=== PATIENT | female | born 1935 | race Caucasian/White ===

== ENCOUNTER 2017-02-19 14:15 | Inpatient (IN) | payer MEDICARE, MEDICAID ==
[~2017-02-19] VITALS: Ht 165.1 cm; Wt 58.1 kg
--- NOTE | 2017-02-19 14:20 | NUR ---
Code stroke activated per Dr.Sauer holman.
[2017-02-19 14:51] LABS: BASOPHILS % (AUTO) 0.4 % (0.0-2.0); EOSINOPHILS # (AUTO) 0.1 K/uL (0.0-0.7); EOSINOPHILS % (AUTO) 1.4 % (0.0-7.0); HEMATOCRIT 43.4 % (31.2-41.9); LYMPHOCYTES # (AUTO) 3.3 K/uL (20.0-40.0); LYMPHOCYTES % (AUTO) 36.9 % (20.5-51.5); MEAN CORPUSCULAR HEMOGLOBIN 31.4 uug (24.7-32.8); MEAN CORPUSCULAR HGB CONC 35 g/dL (32.3-35.6); MEAN CORPUSCULAR VOLUME 90.9 fL (75.5-95.3); MONOCYTES % (AUTO) 10.8 % (0.0-11.0); NEUTROPHILS # (AUTO) 4.6 K/uL (1.8-8.9); NEUTROPHILS % (AUTO) 50.5 % (38.5-71.5); PLATELET COUNT (AUTO) 180 K/uL (179-408); RED BLOOD CELL COUNT(AUTO) 4.78 MIL/uL (3.63-4.92)
[2017-02-19 14:55] LABS: CARBON DIOXIDE 30 mmol/L (21-32); CHLORIDE 103 mmol/L (98-107); CREATININE 1.3 mg/dL (0.6-1.3); GLUCOSE 84 mg/dL (74-106); POTASSIUM 3.1 mmol/L (3.5-5.1); UREA NITROGEN, BLOOD 25 mg/dL (7-18)
[2017-02-19 15:01] LABS: ALANINE AMINOTRANSFERASE 31 U/L (14-59); ALKALINE PHOSPHATASE 65 U/L (50-136); ASPARTATE AMINOTRANSFERASE 28 U/L (15-37); BILIRUBIN,DIRECT 0.1 mg/dL (0.0-0.2); BILIRUBIN,TOTAL 0.5 mg/dL (0.2-1.0); TOTAL PROTEIN, SERUM 7.9 g/dL (6.4-8.2)
--- NOTE | 2017-02-19 15:11 | NUR ---
TELENEUROLOGIST SESSION WITH PT AND FAMILY CONDUCTED. EXPLANATION OF POSSIBLE USE OF TPA EXPLAINED TO PT AND FAMILY, BUT BEACUSE PT S CURRENTLY ON ELIQUIS, TELENEUROLOGIST INFORMED FAMILY THAT TPA IS CONTRAINDICATED AT THIS TIME. FAMILY RECEPTIVE TO EXPLANATIONS. PT REMAINS VERBALLY RESPONSIVE, BUT STILL UNABLE TO RECOGNIZE DAUGHTER. PT MOVING BOTH UPPER AND LOWER EXTREMITIES ON COMMAND. SESSION TERMINATED WITH TELENEUROLOGIST TO CALL DR JULIAN FOR FURTHER INTERVENTION.
--- NOTE | 2017-02-19 15:36 | NUR ---
upon arrival with pt's daughter translating, pt did not answer questions or follow commands. Upon arrival from xray and after neurologist jimenez, pt was then able to answer questions and i did not notice and deficiets. pt no a/o x 4 and answering all questions and back to normal per daughter.
[2017-02-19] MEDS ORDERED: NORMAL SALINE FLUSH 10 ML DISP.SYRIN ONE (15:37)
[2017-02-19] MEDS ORDERED: IV NORMAL SALINE 250 ML IV ONE (15:37)
[2017-02-19] MEDS ORDERED: IOHEXOL 350 100 ML INFUS..BTL ONE ×2 (15:37→16:16)
--- NOTE | 2017-02-19 15:40 | NUR ---
Pt's daughter signed consent for CTA Brain after speking with .
--- NOTE | 2017-02-19 15:50 | NUR ---
Pt to CT via bhavesh with myself and cytotechnologist/cytology supervisor Zeke with ACLS guidelines in place.
--- NOTE | 2017-02-19 16:20 | NUR ---
Pt had emesis x 2 in radiology dept post CTA and c/o headache. Pt brought back to ER and notified. BP 190/77, HR 62, RR 20, PULSE OX 99% (4L N/C).
[2017-02-19] MEDS ORDERED: ONDANSETRON 4 MG/2 ML VIAL IV ONE (16:30)
[2017-02-19] MEDS ORDERED: CYAN10006 IM (16:44)
[2017-02-19] MEDS ORDERED: DEXL60CA3 PO (16:44)
[2017-02-19] MEDS ORDERED: APIX2.5T PO (16:44)
[2017-02-19] MEDS ORDERED: ATOR20TA PO (16:44)
[2017-02-19] MEDS ORDERED: GLIM2TAB PO (16:44)
[2017-02-19] MEDS ORDERED: VALS160T2 PO (16:44)
[2017-02-19] MEDS ORDERED: VALS1TAB2 PO (16:44)
[2017-02-19] MEDS ORDERED: DOCU100C36 PO (16:44)
[2017-02-19] MEDS ORDERED: POLY17PO4 PO (16:44)
[2017-02-19] MEDS ORDERED: CREON PO (16:44)
[2017-02-19] MEDS ORDERED: DICY20TA11 PO (16:44)
[2017-02-19] MEDS ORDERED: PARO20TA51 PO (16:44)
[2017-02-19] MEDS ORDERED: CITA10TA17 PO (16:44)
[2017-02-19] MEDS ORDERED: NEBI5TAB8 PO (16:44)
[2017-02-19] MEDS ORDERED: SPIR25TA PO (16:44)
[2017-02-19] MEDS ORDERED: LIDO30AD10 TD (16:44)
[2017-02-19] MEDS ORDERED: ONDANSETRON 4 MG/2 ML VIAL ONE (17:04)
[2017-02-19] MEDS ORDERED: ACETAMINOPHEN ES 500 MG TABLET PO ONE (17:45)
[2017-02-19] MEDS ORDERED: LABETALOL HCL 100 MG/20 ML VIAL IV ONE (17:45)
--- NOTE | 2017-02-19 18:03 | NUR ---
PT RESTING, DAUGHTER AT THE BEDSIDE, BELONGINGS LIST/ADMIT ORDER DONE. CALLED TO GIVE REPORT TO 2ND FLOOR AND NURSE TO CALL BACK. MONITOR SHOWS PACED RHYTHM.
[2017-02-19] MEDS ORDERED: LABETALOL HCL 100 MG/20 ML VIAL ONE (18:07)
[2017-02-19] MEDS ORDERED: ACETAMINOPHEN ES 500 MG TABLET ONE (18:07)
--- NOTE | 2017-02-19 18:11 | NUR ---
SBAR REPORT TO KILO EVANGELISTA . PT TO RM 215 VIA [employer].
--- NOTE | 2017-02-19 18:20 | NUR ---
NEW PATIENT TO ROOM 215 AWAKE ALERT COOPERATE WELL SPEAK ICELANDIC ON FALL PRECAUTION BED ALARM ON AND CALL SPENCER IN REACH FAMILY AT BEDSIDE
[2017-02-19 20:00] VITALS: BP 112/52
[2017-02-19] MEDS ORDERED: ACETAMINOPHEN 325 MG TABLET PO PRN (21:00)
[2017-02-19] MEDS ORDERED: MIRALAX 17 GM POWD.PACK PO PRN (21:00)
[2017-02-19] MEDS ORDERED: ONDANSETRON 4 MG/2 ML VIAL IV PRN (21:00)
[2017-02-19] MEDS: AMLODIPINE 5 MG TABLET PO SCH (21:00)
[2017-02-19] MEDS ORDERED: MORPHINE SULFATE 2 MG/1 ML DISP.SYRIN IV PRN (21:00)
[2017-02-19] MEDS ORDERED: DICYCLOMINE HCL 20 MG TABLET PO PRN (21:00)
[2017-02-19] MEDS: ATORVASTATIN 20 MG TABLET PO SCH (21:51)
[2017-02-19] MEDS ORDERED: DOCUSATE SODIUM 100 MG CAPSULE PO ONE (21:58)
[2017-02-19] MEDS: DOCUSATE SODIUM 250 MG CAPSULE PO SCH (22:00)
[2017-02-19] MEDS ORDERED: POTASSIUM CHLORIDE 20 MEQ TAB.PRT.SR PO ONE (22:15)
[2017-02-19] MEDS ORDERED: POTASSIUM CHLORIDE 20 MEQ TAB.PRT.SR ONE (22:28)
[2017-02-20 00:10] VITALS: BP 112/58
[2017-02-20 04:00] VITALS: BP 159/54
--- NOTE | 2017-02-20 06:02 | NUR ---
Pt has been alert, oriented x 4, calm and cooperative throughout my shift. RAHEEL, Utilized walker this morning to ambulate to restroom, tolerated well,, no shortness of breath, no dizziness. Pupils equal, round reactive to light. No drift noted in extremities, tongue midline, smile edges equal. Pt complained of slight headache this morning, but states "it's much better now". Noted 0400 NIBP in right arm is 159, discussed with pt - she has her regular anti-hypertensive medications due this morning at 0900. Continuing to monitor pt for physiologic changes and safety.
[2017-02-20] MEDS ORDERED: ACETAMINOPHEN 325 MG TABLET ONE (06:09)
[2017-02-20 07:02] LABS: BASOPHILS % (AUTO) 0.7 % (0.0-2.0); EOSINOPHILS # (AUTO) 0.1 K/uL (0.0-0.7); EOSINOPHILS % (AUTO) 1.4 % (0.0-7.0); HEMATOCRIT 40.5 % (31.2-41.9); HEMOGLOBIN 13.8 g/dL (10.9-14.3); LYMPHOCYTES # (AUTO) 2.2 K/uL (20.0-40.0); LYMPHOCYTES % (AUTO) 31.1 % (20.5-51.5); MEAN CORPUSCULAR HEMOGLOBIN 31.1 uug (24.7-32.8); MEAN CORPUSCULAR HGB CONC 34 g/dL (32.3-35.6); MEAN CORPUSCULAR VOLUME 91.5 fL (75.5-95.3); MONOCYTES # (AUTO) 0.7 K/uL (2.0-10.0); MONOCYTES % (AUTO) 9.4 % (0.0-11.0); NEUTROPHILS # (AUTO) 4.1 K/uL (1.8-8.9); NEUTROPHILS % (AUTO) 57.4 % (38.5-71.5); PLATELET COUNT (AUTO) 171 K/uL (179-408); RED BLOOD CELL COUNT(AUTO) 4.43 MIL/uL (3.63-4.92); WHITE BLOOD COUNT (AUTO) 7.1 K/uL (3.8-11.8)
[2017-02-20] MEDS: PANTOPRAZOLE SODIUM 40 MG TABLET.DR PO SCH (07:14)
[2017-02-20 07:27] LABS: CARBON DIOXIDE 30 mmol/L (21-32); CHLORIDE 105 mmol/L (98-107); CREATININE 1.1 mg/dL (0.6-1.3); GLUCOSE 91 mg/dL (74-106); UREA NITROGEN, BLOOD 25 mg/dL (7-18)
[2017-02-20 07:28] LABS: ALANINE AMINOTRANSFERASE 26 U/L (14-59); ALKALINE PHOSPHATASE 53 U/L (50-136); ASPARTATE AMINOTRANSFERASE 28 U/L (15-37); BILIRUBIN,TOTAL 0.8 mg/dL (0.2-1.0); CHOLESTEROL 169 mg/dL (<200); HDL CHOLESTEROL 37 mg/dL (40-60); PHOSPHOROUS 4.4 mg/dL (2.5-4.9); TOTAL PROTEIN, SERUM 7.1 g/dL (6.4-8.2); TRIGLYCERIDES 228 MG/DL (30-150)
--- NOTE | 2017-02-20 07:30 | NUR ---
ORDERED po POTASSIUM GIVEN @2200 AND CHARTED IN Em[facility]
[2017-02-20 07:33] LABS: THYROID STIMULATING HORMONE 2.018 mIU/mL (0.358-3.740)
[2017-02-20] MEDS ORDERED: CREON PO SCH (08:00)
[2017-02-20] MEDS: DOCUSATE SODIUM 100 MG CAPSULE PO SCH ×2 (08:50→17:05)
[2017-02-20] MEDS: GLIMEPIRIDE 2 MG TABLET PO SCH (08:50)
[2017-02-20] MEDS: CITALOPRAM 10 MG TABLET PO SCH (08:50)
[2017-02-20] MEDS: VALSARTAN 160 MG TABLET PO SCH (08:51)
[2017-02-20] MEDS: AMLODIPINE 5 MG TABLET PO SCH ×2 (08:52→20:41)
[2017-02-20] MEDS ORDERED: LIDOCAINE 5% PATCH TD SCH (09:00)
[2017-02-20] MEDS ORDERED: HYDROCODONE/APAP 5-325MG TABLET PO PRN (09:15)
[2017-02-20] MEDS ORDERED: APIXABAN 5 MG TABLET PO ONE (11:00)
[2017-02-20 11:53] VITALS: BP 138/52
--- NOTE | 2017-02-20 14:11 | NUR ---
mri brain not done patient has pacemaker
[2017-02-20 15:31] VITALS: BP 140/49
--- NOTE | 2017-02-20 17:19 | NUR ---
DR KOHLER MADE AWARE OF MRI NOT BEING DONE, PT HAS PACEMAKER. NO NEW ORDER
[2017-02-20] MEDS: ELIQUIS 2.5 MG PO SCH (18:55)
[2017-02-20 19:00] VITALS: BP 156/84
--- NOTE | 2017-02-20 19:30 | NUR ---
PT IN ROOM ALERT AWAKE IN NO ACUTE DISTRESS. STATES SHE WILL BE TALKING TO THE MD ABOUT HER "MRI" STATUS. IV SITE INTACT TO RIGHT AC. NO INCREASED WEAKNESS NOTED TO UPPER AND LOWER EXTREMITIES. SPEECH IS CLEAR. CONTINUE TO MONITOR. CALL LIGHT PLACED WITHIN REACH.
[2017-02-20] MEDS: DOCUSATE SODIUM 250 MG CAPSULE PO SCH (20:35)
[2017-02-20] MEDS: ATORVASTATIN 20 MG TABLET PO SCH (20:41)
--- NOTE | 2017-02-21 01:00 | NUR ---
PT IN ROOM ASLEEP IN NO ACUTE DISTRESS. NO PAIN OR DISCOMFORT NOTED AT THIS TIME. CONTINUE TO MONITOR.
[2017-02-21 06:38] LABS: BASOPHILS % (AUTO) 0.6 % (0.0-2.0); EOSINOPHILS # (AUTO) 0.1 K/uL (0.0-0.7); EOSINOPHILS % (AUTO) 1.8 % (0.0-7.0); HEMATOCRIT 42.1 % (31.2-41.9); HEMOGLOBIN 14.3 g/dL (10.9-14.3); MEAN CORPUSCULAR HEMOGLOBIN 31.2 uug (24.7-32.8); MEAN CORPUSCULAR HGB CONC 34 g/dL (32.3-35.6); MEAN CORPUSCULAR VOLUME 91.6 fL (75.5-95.3); MONOCYTES # (AUTO) 0.7 K/uL (2.0-10.0); MONOCYTES % (AUTO) 10.3 % (0.0-11.0); NEUTROPHILS # (AUTO) 4.1 K/uL (1.8-8.9); NEUTROPHILS % (AUTO) 58.3 % (38.5-71.5); PLATELET COUNT (AUTO) 163 K/uL (179-408); RED BLOOD CELL COUNT(AUTO) 4.59 MIL/uL (3.63-4.92)
[2017-02-21] MEDS: PANTOPRAZOLE SODIUM 40 MG TABLET.DR PO SCH (07:03)
[2017-02-21 07:04] LABS: CARBON DIOXIDE 30 mmol/L (21-32); CHLORIDE 105 mmol/L (98-107); GLUCOSE 90 mg/dL (74-106); PHOSPHOROUS 3.7 mg/dL (2.5-4.9); UREA NITROGEN, BLOOD 18 mg/dL (7-18)
--- NOTE | 2017-02-21 08:00 | NUR ---
Patient came to hospital with altered mental status. Currently in her room watching TV at this time. Patient is awake and alert and oriented x3. Exhibits no symptoms of confusion. Vitals signs stable at this time.
[2017-02-21] MEDS: GLIMEPIRIDE 2 MG TABLET PO SCH (08:15)
[2017-02-21] MEDS: CITALOPRAM 10 MG TABLET PO SCH (08:18)
[2017-02-21] MEDS: DOCUSATE SODIUM 100 MG CAPSULE PO SCH (08:18)
[2017-02-21] MEDS: AMLODIPINE 5 MG TABLET PO SCH (08:19)
[2017-02-21] MEDS: VALSARTAN 160 MG TABLET PO SCH (08:20)
[2017-02-21] MEDS: ELIQUIS 2.5 MG PO SCH (08:23)
[2017-02-21] MEDS ORDERED: SPIRONOLACTONE 25 MG TABLET PO SCH (09:00)
[2017-02-21 11:25] VITALS: BP 157/70
--- NOTE | 2017-02-21 12:00 | NUR ---
Dr Balderas saw patient today with DC orders. Noted and carried out.
[2017-02-21] MEDS ORDERED: APIX5TAB PO (14:12)
[2017-02-21 15:38] VITALS: BP 144/65
--- NOTE | 2017-02-21 16:08 | NUR ---
Patient was picked up by family. Pharmacist came to give instruction regarding patient's medications. Patient's iv hep-lock was removed. Gave patient discharge paperwork, personal belongings, home medications and patient education and to follow-up with pmd in a week. Patient verbalized understanding. Vital signs stable
== END 2017-02-21 15:45 | disposition home or self-care (01) | DRG 69 ==
LOC: ER 14:15 → TELE 18:00 → MED 02-20 17:42
PROVIDERS: ADMIT Internal Medicine; ATTEND Internal Medicine
DX: G45.9 Transient cerebral ischemic attack, unspecified (principal); N17.0 Acute kidney failure with tubular necrosis; I48.91 Unspecified atrial fibrillation; E11.9 Type 2 diabetes mellitus without complications; I65.23 Occlusion and stenosis of bilateral carotid arteries; E78.5 Hyperlipidemia, unspecified; Z86.73 Personal history of transient ischemic attack (TIA), and cerebral infarction without residual deficits; Z79.01 Long term (current) use of anticoagulants; Z79.899 Other long term (current) drug therapy; I10 Essential (primary) hypertension; E87.6 Hypokalemia; Z95.0 Presence of cardiac pacemaker; Z87.891 Personal history of nicotine dependence; Z85.828 Personal history of other malignant neoplasm of skin; Z79.84 Long term (current) use of oral hypoglycemic drugs; G89.29 Other chronic pain; M54.9 Dorsalgia, unspecified
CPT/HCPCS: 36415; 70030-TC; 70450; 70496; 71010; 83735; 84100; 84443; 85025; 85730; 93005; 97116; 97530; A4663; J2405; J3490; J7050; Q9967

== ENCOUNTER 2017-06-27 11:21 | Emergency (ER) | payer MEDICARE, MEDICAID ==
[~2017-06-27] VITALS: Ht 160 cm; Wt 61.2 kg
[~2017-06-27 11:21] MED LIST: APIX5TAB PO; ATOR20TA PO; CITA10TA17 PO; CREON PO; CYAN10006 IM; DEXL60CA3 PO; DICY20TA11 PO; DOCU100C36 PO; GLIM2TAB PO; NEBI5TAB8 PO; PARO20TA51 PO; POLY17PO4 PO; SPIR25TA PO; VALS160T2 PO
[2017-06-27 11:49] LABS: BASOPHILS % (AUTO) 0.3 % (0.0-2.0); EOSINOPHILS # (AUTO) 0.1 K/uL (0.0-0.7); HEMATOCRIT 41.2 % (31.2-41.9); HEMOGLOBIN 14.1 g/dL (10.9-14.3); LYMPHOCYTES # (AUTO) 1.4 K/uL (20.0-40.0); LYMPHOCYTES % (AUTO) 12.6 % (20.5-51.5); MEAN CORPUSCULAR HEMOGLOBIN 31.7 uug (24.7-32.8); MEAN CORPUSCULAR HGB CONC 34 g/dL (32.3-35.6); MEAN CORPUSCULAR VOLUME 92.6 fL (75.5-95.3); MONOCYTES # (AUTO) 0.8 K/uL (2.0-10.0); MONOCYTES % (AUTO) 6.9 % (0.0-11.0); NEUTROPHILS # (AUTO) 8.9 K/uL (1.8-8.9); NEUTROPHILS % (AUTO) 79.2 % (38.5-71.5); PLATELET COUNT (AUTO) 158 K/uL (179-408); RED BLOOD CELL COUNT(AUTO) 4.45 MIL/uL (3.63-4.92); WHITE BLOOD COUNT (AUTO) 11.2 K/uL (3.8-11.8)
[2017-06-27 11:52] LABS: CARBON DIOXIDE 27 mmol/L (21-32); CHLORIDE 106 mmol/L (98-107); CREATININE 1.2 mg/dL (0.6-1.3); GLUCOSE 128 mg/dL (74-106); UREA NITROGEN, BLOOD 23 mg/dL (7-18)
[2017-06-27 11:58] LABS: ALANINE AMINOTRANSFERASE 40 U/L (14-59); ALKALINE PHOSPHATASE 76 U/L (50-136); ASPARTATE AMINOTRANSFERASE 28 U/L (15-37); BILIRUBIN,DIRECT 0.2 mg/dL (0.0-0.2); BILIRUBIN,TOTAL 0.7 mg/dL (0.2-1.0); LIPASE 461 U/L (73-393); TOTAL PROTEIN, SERUM 7.8 g/dL (6.4-8.2)
--- NOTE | 2017-06-27 12:24 | NUR ---
assymptomatic now. no pain no nausea at rest
[2017-06-27 12:49] VITALS: BP 152/67
== END 2017-06-27 13:02 | disposition home or self-care (01) ==
LOC: ER 11:21
DX: I10 Essential (primary) hypertension (principal); R74.8 Abnormal levels of other serum enzymes; E78.5 Hyperlipidemia, unspecified; Z88.1 Allergy status to other antibiotic agents; Z79.2 Long term (current) use of antibiotics; Z79.899 Other long term (current) drug therapy; Z95.0 Presence of cardiac pacemaker; Z86.73 Personal history of transient ischemic attack (TIA), and cerebral infarction without residual deficits; E11.9 Type 2 diabetes mellitus without complications
CPT/HCPCS: 36415; 80048; 80076; 83690; 84484; 85025; 93005; 99285; A4663; 70030-TC

== ENCOUNTER 2020-10-31 18:44 | Inpatient (IN) | payer MEDICARE, OTHER ==
[~2020-10-31] VITALS: Ht 165.1 cm; Wt 63.5 kg
[2020-10-31 18:26] VITALS: BP 152/85
[~2020-10-31 18:44] MED LIST changes: +PARO-142 PO; -PARO20TA51 PO
--- NOTE | 2020-10-31 19:25 | NUR ---
Received admission report from outgoing nurse. Patient in bed, awake, alert and oriented x 2-3, able to make needs known. Oriented to room, call light use, frequent rounding. Denies any pain/discomforts at this time. Routine admission care done. Plan of care initiated.
[2020-10-31] MEDS ORDERED: Z GUARD REMEDY PASTE 57 GM TUBE TOP PRN (20:15)
[2020-10-31] MEDS ORDERED: HYDR-3974 PO (20:34)
[2020-10-31] MEDS ORDERED: CARV25TA2 PO (20:34)
[2020-10-31] MEDS ORDERED: DOCU100C36 PO (20:34)
[2020-10-31] MEDS ORDERED: ASPI-612 PO (20:34)
[2020-10-31] MEDS ORDERED: SACU1TAB7 PO (20:34)
[2020-10-31] MEDS ORDERED: SITA50TA PO (20:34)
[2020-10-31] MEDS ORDERED: MIRA25TA PO (20:34)
[2020-10-31] MEDS ORDERED: ESCI10TA PO (20:34)
[2020-10-31] MEDS ORDERED: AMLO2.5T4 PO (20:34)
[2020-10-31] MEDS ORDERED: CLIN300C12 PO (20:34)
[2020-10-31] MEDS ORDERED: LEVO75TA7 PO (20:34)
[2020-10-31] MEDS ORDERED: ROSU10TA2 PO (20:34)
[2020-10-31] MEDS ORDERED: PANT40TA49 PO (20:34)
[2020-10-31] MEDS ORDERED: METR-147 PO (20:34)
[2020-10-31 20:42] VITALS: BP 112/65
[2020-10-31] MEDS ORDERED: DEXTROSE 50% 50 ML DISP.SYRIN IV PRN (20:45)
[2020-10-31 20:55] VITALS: BP 164/96
[2020-10-31] MEDS: BLOOD SUGAR DIAGNOSTIC 1 EACH STRIP VI SCH (21:31)
[2020-10-31] MEDS ORDERED: ACETAMINOPHEN 325 MG TABLET PO PRN (22:30)
[2020-10-31] MEDS ORDERED: MIRALAX 17 GM POWD.PACK PO PRN (22:30)
[2020-11-01 04:42] VITALS: BP 145/81
[2020-11-01] MEDS: BLOOD SUGAR DIAGNOSTIC 1 EACH STRIP VI SCH ×4 (05:51→21:16)
[2020-11-01 06:04] LABS: HEMATOCRIT 33.6 % (31.2-41.9); MEAN CORPUSCULAR HEMOGLOBIN 30.3 uug (24.7-32.8); MEAN CORPUSCULAR VOLUME 89.8 fL (75.5-95.3); PLATELET COUNT (AUTO) 128 K/uL (179-408)
[2020-11-01 07:30] LABS: THYROID STIMULATING HORMONE 0.187 mIU/mL (0.358-3.740)
[2020-11-01 07:41] VITALS: BP 138/72
[2020-11-01 07:51] LABS: BILIRUBIN,TOTAL 0.8 mg/dL (0.2-1.0); CREATININE 0.7 mg/dL (0.6-1.3); MAGNESIUM 1.8 mg/dL (1.8-2.4); PHOSPHOROUS 3.4 mg/dL (2.5-4.9); POTASSIUM 3.5 mmol/L (3.5-5.1); TOTAL PROTEIN, SERUM 6.2 g/dL (6.4-8.2)
[2020-11-01] MEDS: HYDROCODONE/APAP 5-325MG TABLET PO PRN ×2 (10:05→17:13)
--- NOTE | 2020-11-01 11:29 | NUR ---
WOUND CARE CONSULT: PT PRESENTS WITH SURGICAL DRESSING TO LEFT HIP, DRY DRESSING TO LEFT WRIST WITH SPLINT AND SLING, DISCOLORATION TO POSTERIOR NECK AND SACRAL INTACT DEEP TISSUE INJURY, PRESENT ON ADMISSION. RECOMMENDATIONS MADE FOR SKIN PROTECTION AND WOUND CARE. DISCUSSED WITH NURSING STAFF. SALES CATH NOTED. MD IN AGREEMENT WITH PLAN OF CARE.
[2020-11-01] MEDS ORDERED: MIRALAX 17 GM POWD.PACK PO PRN (12:15)
[2020-11-01] MEDS ORDERED: DICYCLOMINE HCL 20 MG TABLET PO PRN (12:15)
[2020-11-01] MEDS ORDERED: HYDROCODONE/APAP 5-325MG TABLET PO PRN (12:15)
[2020-11-01] MEDS ORDERED: ROSU10TA2 PO (14:05)
[2020-11-01] MEDS ORDERED: APIX2.5T PO (14:05)
[2020-11-01] MEDS ORDERED: CAPT25TA3 PO (14:07)
[2020-11-01] MEDS ORDERED: AMIO200T5 PO (14:55)
[2020-11-01 15:34] VITALS: BP 110/72
[2020-11-01] MEDS ORDERED: DOCUSATE SODIUM 100 MG CAPSULE PO PRN (17:00)
[2020-11-01] MEDS ORDERED: DOCUSATE SODIUM 100 MG CAPSULE PO SCH (17:00)
[2020-11-01] MEDS ORDERED: CREON PO SCH (17:00)
[2020-11-01] MEDS: ENTRESTO PO SCH (17:11)
[2020-11-01] MEDS: CARVEDILOL 25 MG TABLET PO SCH (17:12)
[2020-11-01] MEDS: AMLODIPINE 2.5 MG TABLET PO SCH (17:12)
[2020-11-01 20:00] VITALS: BP 108/69
[2020-11-01] MEDS ORDERED: PAROXETINE HCL 20 MG TABLET PO SCH (21:00)
[2020-11-01] MEDS ORDERED: APIXABAN 2.5 MG TABLET PO SCH (21:00)
[2020-11-01] MEDS ORDERED: Medication Not On Formulary EA (Rosuvastatin Calcium (Crestor) 10 MG) PO SCH (21:00)
[2020-11-01] MEDS: DOCUSATE SODIUM 100 MG CAPSULE PO SCH (21:12)
[2020-11-01] MEDS: ATORVASTATIN 20 MG TABLET PO SCH (21:12)
[2020-11-01] MEDS: APIXABAN 2.5 MG TABLET PO SCH (21:13)
[2020-11-01] MEDS: INSULIN REGULAR, HUMAN 300 UNIT/3 ML VIAL SQ PRN (21:18)
[2020-11-02] VITALS: BP 145/75
[2020-11-02 04:00] VITALS: BP 146/77
[2020-11-02] MEDS: PANTOPRAZOLE SODIUM 40 MG TABLET.DR PO SCH (05:44)
[2020-11-02] MEDS: LEVOTHYROXINE SODIUM 75 MCG TABLET PO SCH (05:44)
[2020-11-02] MEDS: BLOOD SUGAR DIAGNOSTIC 1 EACH STRIP VI SCH ×4 (05:49→20:27)
--- NOTE | 2020-11-02 06:59 | NUR ---
Shift End Report: VS stable. slept well. No complaint presented all night. All needs attended and met. No significant event reported. Continue current rehab plan of care.
[2020-11-02 07:43] VITALS: BP 121/80
[2020-11-02] MEDS: CARVEDILOL 25 MG TABLET PO SCH ×2 (08:00→18:02)
[2020-11-02 08:34] VITALS: BP 144/79
[2020-11-02] MEDS ORDERED: Medication Not On Formulary EA (Sitagliptin Phosphate (Januvia) 50 MG) PO SCH (09:00)
[2020-11-02] MEDS ORDERED: VALSARTAN 160 MG TABLET PO SCH (09:00)
[2020-11-02] MEDS: APIXABAN 2.5 MG TABLET PO SCH ×2 (09:00→20:20)
[2020-11-02] MEDS ORDERED: ASPIRIN 325 MG TABLET PO SCH (09:00)
[2020-11-02] MEDS: LISINOPRIL 5 MG TABLET PO SCH (09:00)
[2020-11-02] MEDS ORDERED: CAPTOPRIL 25 MG PO SCH (09:00)
[2020-11-02] MEDS: AMIODARONE HCL 200 MG TABLET PO SCH (09:00)
[2020-11-02] MEDS: ESCITALOPRAM OXALATE 10 MG TABLET PO SCH (09:00)
[2020-11-02] MEDS: MYRBETRIQ 25MG TABLET PO SCH (09:00)
[2020-11-02] MEDS: ENTRESTO PO SCH ×2 (09:00→18:01)
[2020-11-02] MEDS: LINAGLIPTIN 5 MG TABLET PO SCH (09:00)
[2020-11-02] MEDS ORDERED: CITALOPRAM 10 MG TABLET PO SCH (09:00)
[2020-11-02] MEDS ORDERED: Medication Not On Formulary EA (Nebivolol Hcl (Bystolic) 5 MG) PO SCH (09:00)
[2020-11-02] MEDS: AMLODIPINE 2.5 MG TABLET PO SCH (09:00)
[2020-11-02] MEDS ORDERED: GLIMEPIRIDE 2 MG TABLET PO SCH (09:00)
[2020-11-02] MEDS: HYDROCODONE/APAP 5-325MG TABLET PO PRN (09:07)
[2020-11-02] MEDS ORDERED: ONDANSETRON 4 MG/2 ML VIAL IV PRN (13:00)
[2020-11-02] MEDS ORDERED: IV 1/2NS 1000 ML 1,000 ML IV ONE (13:00)
--- NOTE | 2020-11-02 13:42 | NUR ---
INTERDISCIPLINARY TEAM CONFERENCE
[2020-11-02 15:36] VITALS: BP 123/69
--- NOTE | 2020-11-02 19:27 | NUR ---
RECEIVED CALL FROM [facility] SHE IS POSITIVE FOR MRSA BOTH NARES
[2020-11-02 20:00] VITALS: BP 116/68
[2020-11-02] MEDS: ATORVASTATIN 20 MG TABLET PO SCH (20:19)
[2020-11-02] MEDS: DOCUSATE SODIUM 100 MG CAPSULE PO SCH (20:20)
[2020-11-02] MEDS: INSULIN REGULAR, HUMAN 300 UNIT/3 ML VIAL SQ PRN (20:30)
[2020-11-02] MEDS: MUPIROCIN 2% OINT 22 GM TUBE NS SCH (21:23)
--- NOTE | 2020-11-02 23:07 | NUR ---
Received pt on bed, hard of hearing, alert and oriented x4. On O2 at 2 lpm via NC, with no respiratory distress noted. No c/o pain or discomforts at this time. Due medications given and tolerated well. Blood sugar checked with sliding scale covered. All needs attended. Call light placed within reach. Will continue to monitor.
[2020-11-03 04:05] VITALS: BP 124/74
[2020-11-03] MEDS: PANTOPRAZOLE SODIUM 40 MG TABLET.DR PO SCH (06:04)
[2020-11-03] MEDS: LEVOTHYROXINE SODIUM 75 MCG TABLET PO SCH (06:04)
[2020-11-03 06:18] LABS: HEMATOCRIT 31.9 % (31.2-41.9); MEAN CORPUSCULAR HEMOGLOBIN 31.1 uug (24.7-32.8); MEAN CORPUSCULAR VOLUME 89.9 fL (75.5-95.3); PLATELET COUNT (AUTO) 169 K/uL (179-408)
[2020-11-03] MEDS: BLOOD SUGAR DIAGNOSTIC 1 EACH STRIP VI SCH ×4 (06:32→20:36)
[2020-11-03 06:35] LABS: BILIRUBIN,DIRECT 0.3 mg/dL (0.0-0.2); BILIRUBIN,TOTAL 0.8 mg/dL (0.2-1.0); CREATININE 0.8 mg/dL (0.6-1.3); PHOSPHOROUS 2.8 mg/dL (2.5-4.9); POTASSIUM 3.8 mmol/L (3.5-5.1); TOTAL PROTEIN, SERUM 5.7 g/dL (6.4-8.2)
--- NOTE | 2020-11-03 06:41 | NUR ---
Patient slept throughout the night, easily arousable for care. No respiratory distress noted. No c/o pain or discomfort at this time. Due medications given and tolerated well. Blood sugar checked, 139. All needs attended. Call light placed within reach. Frequent visual checks done. Will endorse for continuity of care.
[2020-11-03 07:35] VITALS: BP 111/81
[2020-11-03] MEDS: CARVEDILOL 25 MG TABLET PO SCH ×2 (08:00→17:38)
[2020-11-03] MEDS: LINAGLIPTIN 5 MG TABLET PO SCH (08:29)
[2020-11-03] MEDS: ESCITALOPRAM OXALATE 10 MG TABLET PO SCH (08:29)
[2020-11-03] MEDS: AMIODARONE HCL 200 MG TABLET PO SCH (08:30)
[2020-11-03] MEDS: HYDROCODONE/APAP 5-325MG TABLET PO PRN (08:32)
[2020-11-03] MEDS: APIXABAN 2.5 MG TABLET PO SCH ×2 (08:37→20:28)
[2020-11-03] MEDS ORDERED: ASPIRIN 325 MG TABLET PO SCH (09:00)
[2020-11-03] MEDS ORDERED: SPIRONOLACTONE 25 MG TABLET PO SCH (09:00)
[2020-11-03] MEDS: LISINOPRIL 5 MG TABLET PO SCH (09:00)
[2020-11-03] MEDS: MUPIROCIN 2% OINT 22 GM TUBE NS SCH ×2 (09:36→20:32)
[2020-11-03] MEDS: MYRBETRIQ 25MG TABLET PO SCH (09:36)
[2020-11-03] MEDS: ASPIRIN 81 MG TAB.CHEW PO SCH (09:36)
[2020-11-03] MEDS: ENTRESTO PO SCH ×2 (09:37→17:38)
[2020-11-03] MEDS: INSULIN REGULAR, HUMAN 300 UNIT/3 ML VIAL SQ PRN ×3 (11:27→20:38)
--- NOTE | 2020-11-03 14:06 | NUR ---
INDIVIDUALIZED PLAN OF CARE
[2020-11-03 15:04] VITALS: BP 102/54
[2020-11-03] MEDS: GLUCERNA SHAKE VANILLA 237 ML CAN PO SCH (17:39)
--- NOTE | 2020-11-03 18:00 | NUR ---
Patient remains alert, not in any form of distress, on 2LPM via nasal cannula. Needs attended to promptly. Maintained NWB pracaution on the left upper arm with arm sling on. Kept patient clean and comfortable, turned and repositioned. Will continue to monitor and will endorse accordingly
[2020-11-03 20:12] VITALS: BP 107/65
[2020-11-03] MEDS: DOCUSATE SODIUM 100 MG CAPSULE PO SCH (20:28)
[2020-11-03] MEDS: ATORVASTATIN 20 MG TABLET PO SCH (20:28)
--- NOTE | 2020-11-03 21:50 | NUR ---
Received pt on bed, hard of hearing, alert and oriented x4. On O2 at 2 lpm via NC, with no respiratory distress noted. No c/o pain or discomfort at this time. Due medications given and tolerated well. Blood sugar checked with sliding scale covered. Specialty mattress placed. All needs attended. Call light placed within reach. Will continue to monitor.
[2020-11-04 04:35] VITALS: BP 131/63
[2020-11-04] MEDS: LEVOTHYROXINE SODIUM 75 MCG TABLET PO SCH (06:16)
[2020-11-04] MEDS: PANTOPRAZOLE SODIUM 40 MG TABLET.DR PO SCH (06:16)
--- NOTE | 2020-11-04 06:29 | NUR ---
Patient slept throughout the night, easily arousable for care. No respiratory distress noted. No c/o pain or discomfort at this time. Due medications given and tolerated well. Blood sugar checked, 114. Kept clean, dry, and comfortable. All needs attended. Call light placed within reach. Frequent visual checks done. Will endorse for continuity of care.
[2020-11-04] MEDS: BLOOD SUGAR DIAGNOSTIC 1 EACH STRIP VI SCH ×4 (06:31→20:25)
[2020-11-04] MEDS: HYDROCODONE/APAP 5-325MG TABLET PO PRN (07:56)
[2020-11-04 08:00] VITALS: BP 122/74
[2020-11-04] MEDS: ASPIRIN 81 MG TAB.CHEW PO SCH (08:00)
[2020-11-04] MEDS: LINAGLIPTIN 5 MG TABLET PO SCH (08:00)
[2020-11-04] MEDS: ESCITALOPRAM OXALATE 10 MG TABLET PO SCH (08:01)
[2020-11-04] MEDS: LISINOPRIL 5 MG TABLET PO SCH (08:01)
[2020-11-04] MEDS: CARVEDILOL 25 MG TABLET PO SCH ×2 (08:01→17:07)
[2020-11-04] MEDS: AMIODARONE HCL 200 MG TABLET PO SCH (08:01)
[2020-11-04] MEDS: APIXABAN 2.5 MG TABLET PO SCH ×2 (08:05→20:20)
[2020-11-04] MEDS: GLUCERNA SHAKE VANILLA 237 ML CAN PO SCH ×2 (08:12→16:57)
[2020-11-04] MEDS: MYRBETRIQ 25MG TABLET PO SCH (08:13)
[2020-11-04] MEDS: MUPIROCIN 2% OINT 22 GM TUBE NS SCH ×2 (08:13→20:48)
[2020-11-04] MEDS: ENTRESTO PO SCH ×2 (08:13→16:57)
[2020-11-04] MEDS: INSULIN REGULAR, HUMAN 300 UNIT/3 ML VIAL SQ PRN ×2 (12:03→20:26)
[2020-11-04 16:08] VITALS: BP_SYST 127; BP_SYST 89; BP_DIAS 62
--- NOTE | 2020-11-04 18:43 | NUR ---
no acute distress noted during shift
[2020-11-04 19:51] VITALS: BP 98/66
[2020-11-04] MEDS: DOCUSATE SODIUM 100 MG CAPSULE PO SCH (20:18)
[2020-11-04] MEDS: ATORVASTATIN 20 MG TABLET PO SCH (20:18)
[2020-11-05 04:06] VITALS: BP 113/55
[2020-11-05] MEDS: LEVOTHYROXINE SODIUM 75 MCG TABLET PO SCH (06:15)
[2020-11-05] MEDS: BLOOD SUGAR DIAGNOSTIC 1 EACH STRIP VI SCH ×4 (06:15→20:29)
[2020-11-05] MEDS: PANTOPRAZOLE SODIUM 40 MG TABLET.DR PO SCH (06:15)
--- NOTE | 2020-11-05 06:43 | NUR ---
Shift End Report. Uneventful night. All needs attended and met. No complaint of pain/discomforts presented. Continue current rehab plan of care.
[2020-11-05] MEDS: INSULIN REGULAR, HUMAN 300 UNIT/3 ML VIAL SQ PRN ×3 (07:42→20:34)
[2020-11-05] MEDS: ESCITALOPRAM OXALATE 10 MG TABLET PO SCH (08:04)
[2020-11-05] MEDS: CARVEDILOL 25 MG TABLET PO SCH ×2 (08:04→17:15)
[2020-11-05] MEDS: LISINOPRIL 5 MG TABLET PO SCH (08:04)
[2020-11-05] MEDS: AMIODARONE HCL 200 MG TABLET PO SCH (08:04)
[2020-11-05] MEDS: ASPIRIN 81 MG TAB.CHEW PO SCH (08:04)
[2020-11-05] MEDS: APIXABAN 2.5 MG TABLET PO SCH ×2 (08:06→20:26)
[2020-11-05] MEDS: MUPIROCIN 2% OINT 22 GM TUBE NS SCH ×2 (08:07→20:25)
[2020-11-05] MEDS: GLUCERNA SHAKE VANILLA 237 ML CAN PO SCH ×2 (08:07→17:15)
[2020-11-05] MEDS: MYRBETRIQ 25MG TABLET PO SCH (08:08)
[2020-11-05] MEDS: ENTRESTO PO SCH ×2 (08:08→17:16)
[2020-11-05] MEDS: LINAGLIPTIN 5 MG TABLET PO SCH (08:08)
[2020-11-05 08:58] VITALS: BP 125/73
--- NOTE | 2020-11-05 11:05 | NUR ---
Patient daughter jemima took patient both hearing aids and hearing aid head charger home
[2020-11-05] MEDS ORDERED: VITAMINS A AND D OINT TP PRN (12:00)
[2020-11-05] MEDS ORDERED: HYDROCORTISONE 1% CREAM 30 GM TUBE TP PRN (12:00)
[2020-11-05 15:52] VITALS: BP 128/70
--- NOTE | 2020-11-05 18:08 | NUR ---
patient is alert, oriented, noted sleepy most of the time during day time, no events noted, incision site is clean and dry, no drainage, no redness noted.
[2020-11-05 18:31] LABS: *BILIRUBIN,URIN NEGATIVE (NEGATIVE); *BLOOD, URINE 2+ (NEGATIVE); *CLARITY,URINE SLIGHTLY CLOUDY (CLEAR); *COLOR,URINE DARK YELLOW (YELLOW); *KETONES,URINE NEGATIVE (NEGATIVE); LEUKOCYTE ESTERASE ,URINE 1+ (NEGATIVE); NITRITE, URINE POSITIVE (NEGATIVE); UGLUCOSE NEGATIVE (NEGATIVE)
[2020-11-05 19:06] LABS: BACTERIA,URINE MANY /HPF (NONE SEEN); CALCIUM OXALATE CRYSTALS,UR FEW /HPF (NONE SEEN); SQUAMOUS EPITHELIAL CELL,UR FEW /HPF (NONE SEEN); URINE AMORPHOUS URATE FEW /HPF; WBC,URINE TNTC /HPF (0-3)
--- NOTE | 2020-11-05 19:23 | NUR ---
UA result reported to dr borjas
[2020-11-05 20:19] VITALS: BP 102/60
[2020-11-05] MEDS: ATORVASTATIN 20 MG TABLET PO SCH (20:25)
[2020-11-05] MEDS: DOCUSATE SODIUM 100 MG CAPSULE PO SCH (20:25)
[2020-11-06 04:35] VITALS: BP 132/77
[2020-11-06] MEDS: BLOOD SUGAR DIAGNOSTIC 1 EACH STRIP VI SCH ×4 (05:59→20:46)
[2020-11-06] MEDS: PANTOPRAZOLE SODIUM 40 MG TABLET.DR PO SCH (06:00)
[2020-11-06] MEDS: LEVOTHYROXINE SODIUM 75 MCG TABLET PO SCH (06:00)
--- NOTE | 2020-11-06 06:15 | NUR ---
Shift End Report: No significant event reported. VS stable. NO s/s of hypo/hyperglycemia. No complaint presented. All needs attended and met. Continue current rehab plan of care.
[2020-11-06 07:52] VITALS: BP 157/74
--- NOTE | 2020-11-06 08:30 | NUR ---
Received nano in bed, alert and oriented x 2-3, able to follow simple commands, plesant and cooperative upon assessment. Patient on 2LPM via nasal cannula at 98%. Wean off tyhe oxygen to 1 LPM for 30 mins. Patient is saturating at 95%. After an hour Patient in room air and continuously monitoring her. Patient is saturating at 95% with no s/s of distress.
[2020-11-06] MEDS: ASPIRIN 81 MG TAB.CHEW PO SCH (08:47)
[2020-11-06] MEDS: LISINOPRIL 5 MG TABLET PO SCH (08:48)
[2020-11-06] MEDS: CARVEDILOL 25 MG TABLET PO SCH ×2 (08:48→17:11)
[2020-11-06] MEDS: LINAGLIPTIN 5 MG TABLET PO SCH (08:48)
[2020-11-06] MEDS: ESCITALOPRAM OXALATE 10 MG TABLET PO SCH (08:48)
[2020-11-06] MEDS: GLUCERNA SHAKE VANILLA 237 ML CAN PO SCH ×2 (08:50→17:11)
[2020-11-06] MEDS: APIXABAN 2.5 MG TABLET PO SCH ×2 (08:50→20:43)
[2020-11-06] MEDS: AMIODARONE HCL 200 MG TABLET PO SCH (08:50)
[2020-11-06] MEDS: MYRBETRIQ 25MG TABLET PO SCH (08:51)
[2020-11-06] MEDS: ENTRESTO PO SCH ×2 (08:51→16:23)
[2020-11-06] MEDS: MUPIROCIN 2% OINT 22 GM TUBE NS SCH ×2 (08:55→20:50)
[2020-11-06] MEDS ORDERED: CEphaleXIN 500 MG CAPSULE PO SCH (09:00)
[2020-11-06] MEDS: SULFAMETH/TRIMETH 800/160 MG TABLET PO SCH ×2 (10:44→20:52)
[2020-11-06] MEDS: INSULIN REGULAR, HUMAN 300 UNIT/3 ML VIAL SQ PRN ×2 (11:57→20:47)
--- NOTE | 2020-11-06 12:25 | NUR ---
Patient is eating , patient in room air at 95% no complain of sob. Will continue to monitor. All needs met in a timely manner. Wound treatment rendered on posterior neck and sacral area. Daughter came to visit. Patient voiding well. Bladder is not distended.
[2020-11-06 15:32] VITALS: BP 156/74
[2020-11-06 20:24] VITALS: BP 95/46
[2020-11-06] MEDS: DOCUSATE SODIUM 100 MG CAPSULE PO SCH (20:41)
[2020-11-06] MEDS: ATORVASTATIN 20 MG TABLET PO SCH (20:41)
[2020-11-07 05:43] VITALS: BP 112/76
[2020-11-07] MEDS: PANTOPRAZOLE SODIUM 40 MG TABLET.DR PO SCH (06:19)
[2020-11-07] MEDS: LEVOTHYROXINE SODIUM 75 MCG TABLET PO SCH (06:19)
[2020-11-07] MEDS: BLOOD SUGAR DIAGNOSTIC 1 EACH STRIP VI SCH ×4 (06:22→20:10)
[2020-11-07 08:00] VITALS: BP 123/63
[2020-11-07] MEDS: ASPIRIN 81 MG TAB.CHEW PO SCH (08:30)
[2020-11-07] MEDS: HYDROCODONE/APAP 5-325MG TABLET PO PRN (08:31)
[2020-11-07] MEDS: LINAGLIPTIN 5 MG TABLET PO SCH (08:31)
[2020-11-07] MEDS: SULFAMETH/TRIMETH 800/160 MG TABLET PO SCH ×2 (08:32→20:06)
[2020-11-07] MEDS: ESCITALOPRAM OXALATE 10 MG TABLET PO SCH (08:32)
[2020-11-07] MEDS: APIXABAN 2.5 MG TABLET PO SCH ×2 (08:34→20:07)
[2020-11-07] MEDS: LISINOPRIL 5 MG TABLET PO SCH (09:00)
[2020-11-07] MEDS: AMIODARONE HCL 200 MG TABLET PO SCH (09:31)
[2020-11-07] MEDS: ENTRESTO PO SCH ×2 (09:31→16:45)
[2020-11-07] MEDS: CARVEDILOL 25 MG TABLET PO SCH ×2 (09:31→17:21)
[2020-11-07] MEDS: MYRBETRIQ 25MG TABLET PO SCH (09:32)
[2020-11-07] MEDS: MUPIROCIN 2% OINT 22 GM TUBE NS SCH ×2 (09:33→20:11)
[2020-11-07] MEDS: GLUCERNA SHAKE VANILLA 237 ML CAN PO SCH ×2 (09:34→16:43)
[2020-11-07 15:02] VITALS: BP 97/52
[2020-11-07] MEDS: INSULIN REGULAR, HUMAN 300 UNIT/3 ML VIAL SQ PRN (17:23)
[2020-11-07] MEDS: DOCUSATE SODIUM 100 MG CAPSULE PO SCH (20:06)
[2020-11-07] MEDS: ATORVASTATIN 20 MG TABLET PO SCH (20:06)
[2020-11-07 20:33] VITALS: BP 93/53
[2020-11-08 04:27] VITALS: BP 122/73
[2020-11-08] MEDS: PANTOPRAZOLE SODIUM 40 MG TABLET.DR PO SCH (05:42)
[2020-11-08] MEDS: LEVOTHYROXINE SODIUM 75 MCG TABLET PO SCH (05:42)
[2020-11-08] MEDS: BLOOD SUGAR DIAGNOSTIC 1 EACH STRIP VI SCH ×4 (05:49→20:31)
[2020-11-08] MEDS: CARVEDILOL 25 MG TABLET PO SCH ×2 (08:19→17:29)
[2020-11-08 08:22] VITALS: BP 126/71
[2020-11-08] MEDS: ASPIRIN 81 MG TAB.CHEW PO SCH (08:38)
[2020-11-08] MEDS: LINAGLIPTIN 5 MG TABLET PO SCH (08:38)
[2020-11-08] MEDS: SULFAMETH/TRIMETH 800/160 MG TABLET PO SCH ×2 (08:38→20:30)
[2020-11-08] MEDS: AMIODARONE HCL 200 MG TABLET PO SCH (08:39)
[2020-11-08] MEDS: DULOXETINE 60 MG CAPSULE.DR PO SCH (08:39)
[2020-11-08] MEDS: MUPIROCIN 2% OINT 22 GM TUBE NS SCH ×2 (08:40→20:30)
[2020-11-08] MEDS: GLUCERNA SHAKE VANILLA 237 ML CAN PO SCH ×2 (08:40→17:00)
[2020-11-08] MEDS: MYRBETRIQ 25MG TABLET PO SCH (08:40)
[2020-11-08] MEDS: ENTRESTO PO SCH ×2 (08:40→17:00)
[2020-11-08] MEDS: APIXABAN 2.5 MG TABLET PO SCH ×2 (08:42→20:33)
[2020-11-08] MEDS: HYDROCODONE/APAP 5-325MG TABLET PO PRN (08:53)
[2020-11-08] MEDS: LISINOPRIL 5 MG TABLET PO SCH (10:00)
[2020-11-08] MEDS: INSULIN REGULAR, HUMAN 300 UNIT/3 ML VIAL SQ PRN (11:43)
[2020-11-08 15:15] VITALS: BP 120/63
--- NOTE | 2020-11-08 18:34 | NUR ---
Patient pleasant and cooperative throughout the day. Compliant with medication regimen. Ambulated 5ft, maximum assist with PT. Vital signs stable. Safety precautions in place. Will endorse to night warehouse manager nurse.
[2020-11-08 20:15] VITALS: BP 106/51
[2020-11-08] MEDS: ATORVASTATIN 20 MG TABLET PO SCH (20:30)
[2020-11-08] MEDS: DOCUSATE SODIUM 100 MG CAPSULE PO SCH (20:30)
[2020-11-09 04:20] VITALS: BP 106/61
[2020-11-09] MEDS: PANTOPRAZOLE SODIUM 40 MG TABLET.DR PO SCH (06:09)
[2020-11-09] MEDS: LEVOTHYROXINE SODIUM 75 MCG TABLET PO SCH (06:09)
[2020-11-09] MEDS: BLOOD SUGAR DIAGNOSTIC 1 EACH STRIP VI SCH ×4 (06:11→20:44)
[2020-11-09 07:31] VITALS: BP 98/49
[2020-11-09] MEDS: CARVEDILOL 25 MG TABLET PO SCH (08:00)
[2020-11-09] MEDS: DULOXETINE 60 MG CAPSULE.DR PO SCH (08:24)
[2020-11-09] MEDS: SULFAMETH/TRIMETH 800/160 MG TABLET PO SCH ×2 (08:24→20:44)
[2020-11-09] MEDS: ASPIRIN 81 MG TAB.CHEW PO SCH (08:24)
[2020-11-09] MEDS: HYDROCODONE/APAP 5-325MG TABLET PO PRN (08:24)
[2020-11-09] MEDS: LINAGLIPTIN 5 MG TABLET PO SCH (08:24)
[2020-11-09] MEDS: APIXABAN 2.5 MG TABLET PO SCH ×2 (08:25→20:47)
[2020-11-09] MEDS: AMIODARONE HCL 200 MG TABLET PO SCH (08:26)
[2020-11-09] MEDS: MUPIROCIN 2% OINT 22 GM TUBE NS SCH (08:29)
[2020-11-09] MEDS: ENTRESTO PO SCH ×2 (08:31→16:16)
[2020-11-09] MEDS: GLUCERNA SHAKE VANILLA 237 ML CAN PO SCH ×2 (08:31→17:33)
[2020-11-09] MEDS: MYRBETRIQ 25MG TABLET PO SCH (08:31)
[2020-11-09] MEDS: LISINOPRIL 5 MG TABLET PO SCH (08:31)
--- NOTE | 2020-11-09 11:04 | NUR ---
WOUND CARE FOLLOW UP: SACRAL DEEP TISSUE INJURY REMAINS INTACT. RECOMMENDATIONS MADE FOR SKIN PROTECTION AND WOUND CARE. DISCUSSED WITH NURSING STAFF. DISCOLORATION TO POSTERIOR NECK IS RESOLVING. MD IN AGREEMENT WITH PLAN OF CARE.
--- NOTE | 2020-11-09 14:39 | NUR ---
Patient in bed, alert and verbally responsive, in room air saturating at 95%, cooperative upon assessment. Wound treatment done. All due meds given per MD order. All needs met in a timely manner.
[2020-11-09 15:18] VITALS: BP 90/47
--- NOTE | 2020-11-09 15:45 | NUR ---
INTERDISCIPLINARY TEAM CONFERENCE
[2020-11-09] MEDS: INSULIN REGULAR, HUMAN 300 UNIT/3 ML VIAL SQ PRN (16:35)
[2020-11-09] MEDS ORDERED: CARVEDILOL 12.5 MG TABLET PO SCH (18:00)
[2020-11-09] MEDS ORDERED: CARVEDILOL 25 MG TABLET PO SCH ×2 (18:00)
[2020-11-09] MEDS: DOCUSATE SODIUM 100 MG CAPSULE PO SCH (20:44)
[2020-11-09] MEDS: ATORVASTATIN 20 MG TABLET PO SCH (20:44)
[2020-11-09 21:22] VITALS: BP 124/73
[2020-11-10] MEDS: HYDROCODONE/APAP 5-325MG TABLET PO PRN (02:05)
--- NOTE | 2020-11-10 02:05 | NUR ---
Complaint of right hip pain, medicated as ordered and needed. Will monitor.
[2020-11-10 04:00] VITALS: BP 122/66
[2020-11-10] MEDS: LEVOTHYROXINE SODIUM 75 MCG TABLET PO SCH (06:23)
[2020-11-10] MEDS: PANTOPRAZOLE SODIUM 40 MG TABLET.DR PO SCH (06:23)
[2020-11-10 06:43] LABS: HEMATOCRIT 33.7 % (31.2-41.9); MEAN CORPUSCULAR HEMOGLOBIN 29.9 uug (24.7-32.8); MEAN CORPUSCULAR VOLUME 90.9 fL (75.5-95.3); PLATELET COUNT (AUTO) 349 K/uL (179-408)
[2020-11-10 07:20] LABS: BILIRUBIN,TOTAL 0.7 mg/dL (0.2-1.0); CREATININE 0.8 mg/dL (0.6-1.3); PHOSPHOROUS 3.9 mg/dL (2.5-4.9); POTASSIUM 4.1 mmol/L (3.5-5.1); TOTAL PROTEIN, SERUM 6.6 g/dL (6.4-8.2)
[2020-11-10 07:27] LABS: MAGNESIUM 1.9 mg/dL (1.8-2.4)
[2020-11-10 08:00] VITALS: BP 119/71
[2020-11-10] MEDS ORDERED: CARVEDILOL 25 MG TABLET PO SCH (08:00)
[2020-11-10] MEDS: ASPIRIN 81 MG TAB.CHEW PO SCH (08:24)
[2020-11-10] MEDS: LINAGLIPTIN 5 MG TABLET PO SCH (08:24)
[2020-11-10] MEDS: DULOXETINE 60 MG CAPSULE.DR PO SCH (08:25)
[2020-11-10] MEDS: AMIODARONE HCL 200 MG TABLET PO SCH (08:25)
[2020-11-10] MEDS: LISINOPRIL 5 MG TABLET PO SCH (08:26)
[2020-11-10] MEDS: MYRBETRIQ 25MG TABLET PO SCH (08:26)
[2020-11-10] MEDS: ENTRESTO PO SCH ×2 (08:27→17:07)
[2020-11-10] MEDS: GLUCERNA SHAKE VANILLA 237 ML CAN PO SCH ×2 (08:27→17:06)
[2020-11-10] MEDS: APIXABAN 2.5 MG TABLET PO SCH ×2 (08:29→21:49)
[2020-11-10 08:31] LABS: THYROID STIMULATING HORMONE 3.653 mIU/mL (0.358-3.740)
[2020-11-10] MEDS: PROTEIN SUPPLEMENT (PROSTAT) 30 ML LIQUID PO SCH (11:09)
[2020-11-10 16:00] VITALS: BP 141/82
[2020-11-10] MEDS: CARVEDILOL 12.5 MG TABLET PO SCH (17:07)
[2020-11-10 20:10] VITALS: BP 140/86
[2020-11-10] MEDS: ATORVASTATIN 20 MG TABLET PO SCH (21:48)
[2020-11-10] MEDS: DOCUSATE SODIUM 100 MG CAPSULE PO SCH (21:48)
[2020-11-11 04:15] VITALS: BP 131/74
[2020-11-11] MEDS: PANTOPRAZOLE SODIUM 40 MG TABLET.DR PO SCH (06:05)
[2020-11-11] MEDS: LEVOTHYROXINE SODIUM 75 MCG TABLET PO SCH (06:05)
--- NOTE | 2020-11-11 06:59 | NUR ---
Received pt on bed with no respiratory distress noted upon initial rounds. No c/o pain or discomfort at this time. Due medications given and tolerated well. Kept clean, dry, and comfortable. All needs attended. Call light placed within reach. Frequent visual checks done. Will endorse for continuity of care.
[2020-11-11 08:09] VITALS: BP 112/60
[2020-11-11] MEDS: ASPIRIN 81 MG TAB.CHEW PO SCH (08:36)
[2020-11-11] MEDS: AMIODARONE HCL 200 MG TABLET PO SCH (08:37)
[2020-11-11] MEDS: LISINOPRIL 5 MG TABLET PO SCH (08:37)
[2020-11-11] MEDS: HYDROCODONE/APAP 5-325MG TABLET PO PRN ×2 (08:37→15:34)
[2020-11-11] MEDS: LINAGLIPTIN 5 MG TABLET PO SCH (08:37)
[2020-11-11] MEDS: CARVEDILOL 12.5 MG TABLET PO SCH ×2 (08:37→17:16)
[2020-11-11] MEDS: DULOXETINE 60 MG CAPSULE.DR PO SCH (08:37)
[2020-11-11] MEDS: APIXABAN 2.5 MG TABLET PO SCH ×2 (08:39→21:11)
[2020-11-11] MEDS: MYRBETRIQ 25MG TABLET PO SCH (08:41)
[2020-11-11] MEDS: ENTRESTO PO SCH ×2 (08:41→16:56)
[2020-11-11] MEDS: PROTEIN SUPPLEMENT (PROSTAT) 30 ML LIQUID PO SCH (08:44)
[2020-11-11] MEDS: GLUCERNA SHAKE VANILLA 237 ML CAN PO SCH ×2 (08:48→16:56)
[2020-11-11 16:03] VITALS: BP 104/65
--- NOTE | 2020-11-11 18:02 | NUR ---
patient is alert/oriented, able to make needs known. No distress identified. PRN pain medication given prior to the therapy and in the middle of the shift. Dressing changed done to the sacral area. Patient is refusing to be turned. Educated on importance of turning for circulation. Patient is high risk for developing further skin breakdown. MD order follow up xray to the left hip and left wrist. Dr. Gagnon made rounds, order ortho consult for the left wrist fracture, noted and carried out. He stated he will call Dr Rai for the consult. Frequent visual check done. Kept call light within reach. Assisted with ADLs. All needs attended. Kept environment safe. All due meds given as ordered. Will endorse to the next shift for continuity of care.
[2020-11-11 20:40] VITALS: BP 124/75
[2020-11-11] MEDS: DOCUSATE SODIUM 100 MG CAPSULE PO SCH (21:11)
[2020-11-11] MEDS: ATORVASTATIN 20 MG TABLET PO SCH (21:11)
[2020-11-12 04:20] VITALS: BP 134/73
[2020-11-12] MEDS: PANTOPRAZOLE SODIUM 40 MG TABLET.DR PO SCH (06:12)
[2020-11-12] MEDS: LEVOTHYROXINE SODIUM 75 MCG TABLET PO SCH (06:12)
[2020-11-12 08:00] VITALS: BP_SYST 120; BP_SYST 95; BP_DIAS 64; BP_DIAS 69
[2020-11-12] MEDS: ASPIRIN 81 MG TAB.CHEW PO SCH (09:04)
[2020-11-12] MEDS: DULOXETINE 60 MG CAPSULE.DR PO SCH (09:04)
[2020-11-12] MEDS: CARVEDILOL 12.5 MG TABLET PO SCH ×2 (09:04→16:56)
[2020-11-12] MEDS: LINAGLIPTIN 5 MG TABLET PO SCH (09:04)
[2020-11-12] MEDS: LISINOPRIL 5 MG TABLET PO SCH (09:05)
[2020-11-12] MEDS: AMIODARONE HCL 200 MG TABLET PO SCH (09:05)
[2020-11-12] MEDS: GLUCERNA SHAKE VANILLA 237 ML CAN PO SCH ×2 (09:06→16:55)
[2020-11-12] MEDS: APIXABAN 2.5 MG TABLET PO SCH ×2 (09:06→21:25)
[2020-11-12] MEDS: MYRBETRIQ 25MG TABLET PO SCH (09:11)
[2020-11-12] MEDS: ENTRESTO PO SCH ×2 (09:11→16:55)
[2020-11-12] MEDS: PROTEIN SUPPLEMENT (PROSTAT) 30 ML LIQUID PO SCH (09:22)
[2020-11-12 13:56] LABS: *BILIRUBIN,URIN NEGATIVE (NEGATIVE); *BLOOD, URINE NEGATIVE (NEGATIVE); *CLARITY,URINE CLEAR (CLEAR); *COLOR,URINE YELLOW (YELLOW); *KETONES,URINE NEGATIVE (NEGATIVE); LEUKOCYTE ESTERASE ,URINE NEGATIVE (NEGATIVE); NITRITE, URINE NEGATIVE (NEGATIVE); UGLUCOSE NEGATIVE (NEGATIVE)
[2020-11-12 14:09] LABS: BACTERIA,URINE NONE SEEN /HPF (NONE SEEN); RBC,URINE 0-3 /HPF (0-3); SQUAMOUS EPITHELIAL CELL,UR FEW /HPF (NONE SEEN); URINE AMORPHOUS PHOSPHATES FEW /HPF; WBC,URINE 0-3 /HPF (0-3)
[2020-11-12 16:00] VITALS: BP 117/66
--- NOTE | 2020-11-12 17:57 | NUR ---
Patient participated well with therapy in the morning. Patient for urinalysis-collected, sent lo laboratory. Patient sacral wound open, for wound consult, turning position every 2 hours and if needed. Patient cleanse with NS, apply hydrogel for open wound and cover with mepilex. Patient bed alarm on, on fall risk precaution maintained. call light within reach. will continue monitor
[2020-11-12 20:21] VITALS: BP 117/59
[2020-11-12] MEDS: DOCUSATE SODIUM 100 MG CAPSULE PO SCH (21:23)
[2020-11-12] MEDS: ATORVASTATIN 20 MG TABLET PO SCH (21:23)
--- NOTE | 2020-11-13 03:43 | NUR ---
AAOx4 Needs attended. Patient S/P left hip ORIF and left wrist closed reduction. No distress noted. VSS Will monitor patient. Incontinent of bowel and bladder. Kept clean and dry. Fall precautions maintained. Siderails up for safety. Call zimmerman within reach.
[2020-11-13 04:41] VITALS: BP 128/74
[2020-11-13] MEDS: LEVOTHYROXINE SODIUM 75 MCG TABLET PO SCH (06:15)
[2020-11-13] MEDS: PANTOPRAZOLE SODIUM 40 MG TABLET.DR PO SCH (06:15)
[2020-11-13 08:30] VITALS: BP 109/66
[2020-11-13] MEDS: ASPIRIN 81 MG TAB.CHEW PO SCH (09:04)
[2020-11-13] MEDS: DULOXETINE 60 MG CAPSULE.DR PO SCH (09:04)
[2020-11-13] MEDS: LINAGLIPTIN 5 MG TABLET PO SCH (09:04)
[2020-11-13] MEDS: AMIODARONE HCL 200 MG TABLET PO SCH (09:05)
[2020-11-13] MEDS: ENTRESTO PO SCH ×2 (09:09→17:05)
[2020-11-13] MEDS: APIXABAN 2.5 MG TABLET PO SCH ×2 (09:09→20:04)
[2020-11-13] MEDS: MYRBETRIQ 25MG TABLET PO SCH (09:09)
[2020-11-13] MEDS: PROTEIN SUPPLEMENT (PROSTAT) 30 ML LIQUID PO SCH (09:10)
[2020-11-13] MEDS: CARVEDILOL 12.5 MG TABLET PO SCH ×2 (09:15→17:05)
[2020-11-13] MEDS: LISINOPRIL 5 MG TABLET PO SCH (09:16)
[2020-11-13] MEDS: GLUCERNA SHAKE VANILLA 237 ML CAN PO SCH ×2 (09:16→17:04)
[2020-11-13 16:07] VITALS: BP 117/60
--- NOTE | 2020-11-13 19:30 | NUR ---
RECEIVED PT AWAKE, ALERT AND ORIENTEDX3. PT IN NO ACUTE DISTRESS.SAFETY AND COMFORT PROVIDED.WILL CONTINUE TO MONITOR.
[2020-11-13] MEDS: DOCUSATE SODIUM 100 MG CAPSULE PO SCH (20:03)
[2020-11-13] MEDS: ATORVASTATIN 20 MG TABLET PO SCH (20:03)
[2020-11-13 20:24] VITALS: BP 124/59
[2020-11-14 04:49] VITALS: BP 101/66
--- NOTE | 2020-11-14 06:05 | NUR ---
PT SLEPT INTERMITTENTLY. PT IN NO ACUTE DISTRESS. VS WNL. PT STABLE.PRESCRIBED MEDICATION GIVEN AND PT TOLERATED IT WELL.PT TURNED AND REPOSITIONED. SAFETY AND COMFORT PROVIDED. ALL NEEDS ARE MET. WILL ENDORSE TO INCOMING NURSE FOR CONTINUITY OF CARE.
[2020-11-14] MEDS: PANTOPRAZOLE SODIUM 40 MG TABLET.DR PO SCH (06:14)
[2020-11-14] MEDS: LEVOTHYROXINE SODIUM 75 MCG TABLET PO SCH (06:14)
--- NOTE | 2020-11-14 06:14 | NUR ---
PT ON NPO ORDERED SHE MIGHT HAVE POSSIBLE ORIF.
[2020-11-14 07:51] VITALS: BP 126/80
[2020-11-14] MEDS: PROTEIN SUPPLEMENT (PROSTAT) 30 ML LIQUID PO SCH (08:00)
[2020-11-14] MEDS: LISINOPRIL 5 MG TABLET PO SCH (08:24)
[2020-11-14] MEDS: ASPIRIN 81 MG TAB.CHEW PO SCH (08:24)
[2020-11-14] MEDS: LINAGLIPTIN 5 MG TABLET PO SCH (08:24)
[2020-11-14] MEDS: DULOXETINE 60 MG CAPSULE.DR PO SCH (08:24)
[2020-11-14] MEDS: AMIODARONE HCL 200 MG TABLET PO SCH (08:24)
[2020-11-14 08:25] VITALS: BP 126/80
[2020-11-14] MEDS: GLUCERNA SHAKE VANILLA 237 ML CAN PO SCH (08:25)
[2020-11-14] MEDS: CARVEDILOL 12.5 MG TABLET PO SCH (08:25)
[2020-11-14] MEDS: MYRBETRIQ 25MG TABLET PO SCH (08:27)
[2020-11-14] MEDS: ENTRESTO PO SCH (08:27)
[2020-11-14] MEDS: APIXABAN 2.5 MG TABLET PO SCH (08:30)
[2020-11-14] MEDS ORDERED: IV D5 1/2 NS 1000 ML 1,000 ML IV PRN (11:45)
--- NOTE | 2020-11-14 12:08 | NUR ---
WOUND CARE CONSULT/FOLLOW UP: PT SEEN FOR SACRAL DEEP TISSUE INJURY WHICH IS NOW IN EVOLUTION, PRESENT ON ADMISSION. RECOMMENDATIONS MADE FOR SKIN PROTECTION AND WOUND CARE. DISCUSSED WITH NURSING STAFF. WOUND TREATMENT ORDERS UPDATED. IN AGREEMENT WITH PLAN OF CARE. Addendum: 11/14/20 at 1209 by MICKEY GALE RN Amended: Links added.
--- NOTE | 2020-11-14 13:00 | NUR ---
patient discharged to telemetery unit, for surgery of the left arm. ORIF of left radius. daughter camden is aware. belongings are accounted and signed, patient has DTI to sacrum, no discharge, no signs and symptoms of infection noted at DTI, wound bed is red and pink in color, left hip incision is dry and clean.
[2020-11-14] MEDS ORDERED: ACET-2154 PO (14:49)
[2020-11-14] MEDS ORDERED: DULO60CA45 PO (14:59)
[2020-11-14] MEDS ORDERED: LINA5TAB PO (14:59)
[2020-11-14] MEDS ORDERED: ATOR20TA PO (14:59)
[2020-11-14] MEDS ORDERED: CARV12.52 PO (14:59)
[2020-11-14] MEDS ORDERED: LISI-782 PO (14:59)
[2020-11-14] MEDS ORDERED: PANT40TA2 PO (15:02)
[2020-11-18] MEDS ORDERED: ASPI81TA31 PO (13:16)
[2020-11-18] MEDS ORDERED: APIX2.5T PO (13:16)
[2020-12-01] MEDS ORDERED: CYANOCOBALAMIN 1000 MCG/ML VIAL IM SCH (09:00)
== END 2020-11-14 13:00 | disposition short-term general hospital (02) | DRG 560 ==
PROVIDERS: ADMIT Physical Medicine & Rehabilitation; ATTEND Physical Medicine & Rehabilitation
PROC: 05HB33Z Insertion of Infusion Device into Right Basilic Vein, Percutaneous Approach (ICD-10-PCS; principal; 2020-11-14)
DX: S72.142D Displaced intertrochanteric fracture of left femur, subsequent encounter for closed fracture with routine healing (principal); S52.572A Other intraarticular fracture of lower end of left radius, initial encounter for closed fracture; I48.20 Chronic atrial fibrillation, unspecified; N39.0 Urinary tract infection, site not specified; S52.612D Displaced fracture of left ulna styloid process, subsequent encounter for closed fracture with routine healing; D50.0 Iron deficiency anemia secondary to blood loss (chronic); E11.9 Type 2 diabetes mellitus without complications; H91.90 Unspecified hearing loss, unspecified ear; I11.0 Hypertensive heart disease with heart failure; I50.9 Heart failure, unspecified; Z86.73 Personal history of transient ischemic attack (TIA), and cerebral infarction without residual deficits; I48.91 Unspecified atrial fibrillation; W18.30XD Fall on same level, unspecified, subsequent encounter; I95.9 Hypotension, unspecified; E78.5 Hyperlipidemia, unspecified; G89.29 Other chronic pain; I48.0 Paroxysmal atrial fibrillation; Z79.01 Long term (current) use of anticoagulants; Z95.0 Presence of cardiac pacemaker; Z85.828 Personal history of other malignant neoplasm of skin; Z87.891 Personal history of nicotine dependence; Z91.81 History of falling; R29.6 Repeated falls; R53.1 Weakness; W18.30XA Fall on same level, unspecified, initial encounter; Y92.031 Bathroom in apartment as the place of occurrence of the external cause
CPT/HCPCS: 36415; 70030-TC; 71045; 71250; 73100; 73502; 82652; 83735; 84100; 84443; 85025; 87086; 93005; 97161; A6209; J1815; J3490

== ENCOUNTER 2020-11-14 13:18 | Inpatient (IN) | payer MEDICARE, OTHER ==
[~2020-11-14] VITALS: Ht 165.1 cm; Wt 63.5 kg
[~2020-11-14 13:18] MED LIST changes: +AMIO200T5 PO; +AMLO2.5T4 PO; +APIX2.5T PO; -APIX5TAB PO; +ASPI-612 PO; -ATOR20TA PO; +CAPT25TA3 PO; +CARV25TA2 PO; -CITA10TA17 PO; +CLIN300C12 PO; -CREON PO; -CYAN10006 IM; -DICY20TA11 PO; +ESCI10TA PO; -GLIM2TAB PO; +HYDR-3974 PO; +LEVO75TA7 PO; +METR-147 PO; +MIRA25TA PO; -NEBI5TAB8 PO; -PARO-142 PO; +ROSU10TA2 PO; +SACU1TAB7 PO; +SITA50TA PO; -SPIR25TA PO; -VALS160T2 PO
[2020-11-14] MEDS ORDERED: ACET-2154 PO (14:49)
[2020-11-14] MEDS ORDERED: ATOR20TA PO (14:59)
[2020-11-14] MEDS ORDERED: CARV12.52 PO (14:59)
[2020-11-14] MEDS ORDERED: LINA5TAB PO (14:59)
[2020-11-14] MEDS ORDERED: LISI-782 PO (14:59)
[2020-11-14] MEDS ORDERED: DULO60CA45 PO (14:59)
[2020-11-14] MEDS ORDERED: PANT40TA2 PO (15:02)
[2020-11-14 15:10] VITALS: BP 115/72
--- NOTE | 2020-11-14 15:33 | NUR ---
PATIENT IS ADMITTED FROM THE ACUTE REHAB FOR SURGERY OF LEFT ARM RADIUS ORIF, PATIENT IS ALERT, ORIENTED X3, STABLE CONDITION, SURGERY IS SCHEDULED TOMORROW AT 11AM, NPO MIDNIGHT TONIGHT, PATIENT HAS DTI TO SACRAL AREA, WOUND BED IS RED IN COLOR, NO DRAINAGE NOTED, NO MALODOR NOTED, INCISION SITE TO LEFT HIP IS CLEAN AND DRY, DR CORRIGAN IS AWARE ABOUT THE ADMISSION ORDERS.
[2020-11-14] MEDS ORDERED: IV D5 1/2 NS 1000 ML 1,000 ML IV ONE (16:00)
[2020-11-14] MEDS ORDERED: IV D5 1/2 NS 1000 ML 1,000 ML IV PRN (16:15)
[2020-11-14] MEDS ORDERED: ENALAPRILAT DIHYDRATE 1.25 MG/1 ML VIAL IV PRN (16:45)
[2020-11-14] MEDS ORDERED: ALBUTEROL SULFATE 2.5 MG/ 0.5 ML NEBU NEB PRN ×2 (16:45)
[2020-11-14] MEDS ORDERED: IV D5/ 0.9% NACL 1,000 ML IV PRN (16:45)
[2020-11-14] MEDS ORDERED: ONDANSETRON 4 MG/2 ML VIAL IV PRN (16:45)
[2020-11-14] MEDS ORDERED: MORPHINE SULFATE 2 MG/1 ML DISP.SYRIN IV PRN (16:45)
--- NOTE | 2020-11-14 18:17 | NUR ---
anesthesiologist spoke to daughter Elizabeth and answered her questions
[2020-11-14 20:00] VITALS: BP 110/74
[2020-11-15] VITALS: BP 118/73
[2020-11-15 04:00] VITALS: BP 109/70
--- NOTE | 2020-11-15 05:27 | NUR ---
Pt slept throughout the night. Denies pain or SOB. IV site intact running ordered fluids. Pt has been NPO since midnight for procedure scheduled today. Consent signed, checklist complete. Safety and comfort provided. No other issues or concerns at this time, will endorse to day shift.
[2020-11-15 06:30] LABS: HEMATOCRIT 34.8 % (31.2-41.9); MEAN CORPUSCULAR HEMOGLOBIN 31.2 uug (24.7-32.8); MEAN CORPUSCULAR VOLUME 92.6 fL (75.5-95.3); PLATELET COUNT (AUTO) 244 K/uL (179-408)
[2020-11-15 07:20] LABS: BILIRUBIN,TOTAL 0.7 mg/dL (0.2-1.0); CREATININE 0.8 mg/dL (0.6-1.3); MAGNESIUM 1.8 mg/dL (1.8-2.4); PHOSPHOROUS 3.8 mg/dL (2.5-4.9); POTASSIUM 3.8 mmol/L (3.5-5.1)
--- NOTE | 2020-11-15 09:31 | NUR ---
WOUND CARE CONSULT: PT IS BEING FOLLOWED BY WOUND CARE NURSE FOR SACRAL DEEP TISSUE INJURY IN EVOLUTION, PRESENT ON ADMISSION. RECOMMENDATIONS MADE FOR SKIN PROTECTION AND WOUND CARE. DISCUSSED WITH NURSING STAFF. MD IN AGREEMENT WITH PLAN OF CARE. PT IS ON FIRST STEP [facility].
[2020-11-15] MEDS: PANTOPRAZOLE SODIUM 40 MG VIAL IV SCH (09:37)
[2020-11-15] MEDS ORDERED: Z GUARD REMEDY PASTE 57 GM TUBE TOP PRN (09:45)
[2020-11-15] MEDS ORDERED: POLYMYXIN B SULFATE 500,000 UNITS VIAL ONE (10:33)
[2020-11-15] MEDS ORDERED: VANCOMYCIN 1000 MG VIAL ONE (10:33)
[2020-11-15] MEDS ORDERED: BUPIVACAINE/EPI PF 0.5% 10 ML VIAL ONE (10:33)
[2020-11-15 11:01] VITALS: BP 171/80
--- NOTE | 2020-11-15 11:10 | NUR ---
Patient picked up by OR nurses. Patient remains alert, oriented x 3, not in any form of distress on room air. She denies any pain or discomfort at this time.
[2020-11-15] MEDS ORDERED: FENTANYL CITRATE 250 MCG/5 ML AMPUL ONE (11:49)
[2020-11-15] MEDS ORDERED: ROCURONIUM BROMIDE 50 MG/5 ML VIAL ONE (11:49)
[2020-11-15] MEDS ORDERED: CLINDAMYCIN PHOSPHATE 600 MG/4 ML VIAL ONE (12:16)
[2020-11-15] MEDS ORDERED: LABETALOL HCL 100 MG/20 ML VIAL ONE (13:26)
[2020-11-15] MEDS ORDERED: FENTANYL CITRATE 100 MCG/2 ML AMPUL ONE (13:37)
[2020-11-15] MEDS ORDERED: MORPHINE SULFATE 4 MG/1 ML DISP.SYRIN IV PRN (13:45)
--- NOTE | 2020-11-15 14:25 | NUR ---
Patient back from Surgery. She is awake, alert, not in any form of distress. Patient denies any pain or discomfort at this time. Vital signs stable. Call light and frequently used items placed within patient's reach. Will continue to monitor.
[2020-11-15] MEDS ORDERED: LIDOCAINE-MPF 2% 5 ML VIAL IJ ONE (15:19)
[2020-11-15] MEDS ORDERED: ONDANSETRON 4 MG/2 ML VIAL IV ONE (15:19)
[2020-11-15] MEDS ORDERED: SEVOFLURANE 250 ML BOTTLE IH ONE (15:19)
[2020-11-15] MEDS ORDERED: PROPOFOL 200 MG/20 ML BOTTLE IV ONE (15:19)
[2020-11-15] MEDS ORDERED: NEOSTIGMINE METHYLSULFATE 10 MG/10 ML VIAL IM ONE (15:19)
[2020-11-15] MEDS ORDERED: GLYCOPYRROLATE 0.2 MG/ML VIAL IJ ONE (15:19)
[2020-11-15] MEDS ORDERED: DEXAMETHASONE SOD PHOSPHATE 4 MG INJ IV ONE (15:19)
[2020-11-15 15:37] VITALS: BP 158/98
[2020-11-15] MEDS: HYDROCODONE/APAP 10-325 MG TABLET PO PRN (17:15)
[2020-11-15] MEDS: CLINDAMYCIN PHOSPHATE IV 600 MG in IV DEXTROSE 5% 100 ML IV SCH ×2 (17:24→23:53)
[2020-11-15] MEDS: ENTRESTO PO SCH (17:25)
[2020-11-15] MEDS: IV D5W-0.45% NS +20 KCL 1,000 ML IV PRN (17:28)
--- NOTE | 2020-11-15 19:30 | NUR ---
PATIENT ALERT ORIENTED, ASLEEP BUT AROUSABLE, NO COMPLAIN OF PAIN AT THIS TIME, TELE MONITOR A FIB, NO SOB NO CHEST PAIN, LEFT HIP DRESSING INTACT, LEFT WRIST WRAPPED WITH ORIG DRESSING, INTACT, PATIENT HAS R UPPER ARM MIDLINE INTACT, PATENT, CONT TO MONITOR.
[2020-11-15 20:00] VITALS: BP 150/83
[2020-11-15] MEDS: Z GUARD REMEDY PASTE 57 GM TUBE TOP SCH (21:53)
[2020-11-16 04:00] VITALS: BP 160/94
--- NOTE | 2020-11-16 05:03 | NUR ---
PATIENT ASLEEP NO SOB NO CHEST PAIN, ASSISTED WITH TURNING AND REPOSITIONING. PATIENT COMPLAIN OF LEFT ARM PAIN AND LEFT HIP PAIN, WILL MEDICATE ORDERED, CONT TO MONITOR.
[2020-11-16] MEDS: HYDROCODONE/APAP 10-325 MG TABLET PO PRN (05:45)
--- NOTE | 2020-11-16 06:31 | NUR ---
RECHECK PATIENT FOR PAIN, PATIENT SAID HER PAIN IS BETTER. TELE MONITOR A FIB, SINUS, CONT TO MONITOR.
[2020-11-16] MEDS: PANTOPRAZOLE SODIUM 40 MG VIAL IV SCH (08:33)
[2020-11-16] MEDS: ENTRESTO PO SCH ×2 (08:33→17:57)
[2020-11-16] MEDS: IV D5W-0.45% NS +20 KCL 1,000 ML IV PRN ×2 (08:33→21:04)
[2020-11-16] MEDS: MYRBETRIQ 25 MG PO SCH (08:33)
[2020-11-16] MEDS: Z GUARD REMEDY PASTE 57 GM TUBE TOP SCH ×2 (08:33→20:36)
[2020-11-16 08:39] VITALS: BP 135/91
[2020-11-16] MEDS ORDERED: LISINOPRIL 5 MG TABLET PO SCH (09:00)
[2020-11-16] MEDS: AMIODARONE HCL 200 MG TABLET PO SCH (09:29)
[2020-11-16] MEDS: ASPIRIN 81 MG TAB.CHEW PO SCH (09:29)
[2020-11-16] MEDS: CARVEDILOL 12.5 MG TABLET PO SCH ×2 (09:29→17:48)
[2020-11-16 10:55] LABS: HEMATOCRIT 34.1 % (31.2-41.9); MEAN CORPUSCULAR HEMOGLOBIN 31.5 uug (24.7-32.8); MEAN CORPUSCULAR VOLUME 93.7 fL (75.5-95.3); PLATELET COUNT (AUTO) 286 K/uL (179-408)
[2020-11-16 11:08] LABS: CREATININE 0.9 mg/dL (0.6-1.3); MAGNESIUM 1.8 mg/dL (1.8-2.4); PHOSPHOROUS 3.6 mg/dL (2.5-4.9); POTASSIUM 4.5 mmol/L (3.5-5.1)
[2020-11-16 11:47] VITALS: BP 152/84
[2020-11-16] MEDS ORDERED: ENOXAPARIN SODIUM 40 MG/0.4 ML DISP.SYRIN SQ SCH (12:30)
[2020-11-16 16:00] VITALS: BP 128/79
[2020-11-16] MEDS: GLUCERNA SHAKE 237 ML CAN PO SCH (17:58)
--- NOTE | 2020-11-16 18:39 | NUR ---
Patient is alert/oriented x4, denies pain during the shift. Noted with x1 n/v, PRN medication given, effective. Frequent visual check done. Kept call light within reach. Assisted with ADLs. All needs attended. Kept environment safe. All due meds given as ordered. Will endorse to the next shift for continuity of care.
[2020-11-16 20:00] VITALS: BP 118/79
[2020-11-16] MEDS: ATORVASTATIN 20 MG TABLET PO SCH (20:36)
--- NOTE | 2020-11-16 20:36 | NUR ---
PATIENT MEDICATION GIVEN PATIENT ABLE TO SWALLOW MEDICATION . TOOK MEDICATION WITH WATER PATIENT AWAKE ,ALERT AND ORIENTED .
--- NOTE | 2020-11-16 22:00 | NUR ---
offered pain medication or sleeping pill patient declined she said she will call if she needs pain medication .
--- NOTE | 2020-11-16 22:24 | NUR ---
PATIENT CALLED WANTS THE LIGHT OFF ,TURNED OFF LIGHT ,PATIENT WANTS T SLEEP NOW , NO DISTRESS ON ROOM AIR ,NO COMPLAINS MADE .
--- NOTE | 2020-11-16 23:30 | NUR ---
patient called she said shes wet , with bean picker help changed soiled linens and gown .protective z guard applied to sacral area and bilateral groin .
[2020-11-17 00:35] VITALS: BP 131/79
--- NOTE | 2020-11-17 01:00 | NUR ---
sleeping in bed no distress noted breathing even and unlabored .
[2020-11-17 04:00] VITALS: BP 115/63
[2020-11-17 06:36] LABS: HEMATOCRIT 35.2 % (31.2-41.9); MEAN CORPUSCULAR HEMOGLOBIN 31.3 uug (24.7-32.8); MEAN CORPUSCULAR VOLUME 94.1 fL (75.5-95.3); PLATELET COUNT (AUTO) 233 K/uL (179-408)
[2020-11-17 07:04] LABS: CREATININE 0.8 mg/dL (0.6-1.3); MAGNESIUM 1.7 mg/dL (1.8-2.4); PHOSPHOROUS 3.3 mg/dL (2.5-4.9); POTASSIUM 4.3 mmol/L (3.5-5.1)
--- NOTE | 2020-11-17 07:30 | NUR ---
Patient was noted with x1 emesis during breakfast. Denies discomfort. Educated patient to eat slowly, noted with understanding.
[2020-11-17 08:30] VITALS: BP 129/77
[2020-11-17] MEDS ORDERED: APIXABAN 5 MG TABLET PO SCH (09:00)
--- NOTE | 2020-11-17 09:00 | NUR ---
PRN pain medication given as ordered. Patient reported pain on the left arm/arm. Elevated arm as tolerated. Will continue to monitor.
[2020-11-17] MEDS: MAGNESIUM SULFATE/D5W 100 ML IV SCH ×2 (09:10→09:22)
[2020-11-17] MEDS: AMIODARONE HCL 200 MG TABLET PO SCH (09:11)
[2020-11-17] MEDS: CARVEDILOL 12.5 MG TABLET PO SCH ×2 (09:11→17:07)
[2020-11-17] MEDS: ASPIRIN 81 MG TAB.CHEW PO SCH (09:11)
[2020-11-17] MEDS: MYRBETRIQ 25 MG PO SCH (09:12)
[2020-11-17] MEDS: ENTRESTO PO SCH ×2 (09:12→17:06)
[2020-11-17] MEDS: APIXABAN 2.5 MG TABLET PO SCH ×2 (09:17→22:14)
[2020-11-17] MEDS: GLUCERNA SHAKE 237 ML CAN PO SCH ×3 (09:19→17:06)
[2020-11-17] MEDS: Z GUARD REMEDY PASTE 57 GM TUBE TOP SCH ×2 (09:19→23:23)
[2020-11-17] MEDS: PANTOPRAZOLE SODIUM 40 MG VIAL IV SCH (09:22)
[2020-11-17] MEDS: HYDROCODONE/APAP 10-325 MG TABLET PO PRN (09:28)
[2020-11-17] MEDS ORDERED: MAGNESIUM OXIDE 400 MG TABLET PO ONE (10:30)
[2020-11-17 11:00] VITALS: BP 119/75
--- NOTE | 2020-11-17 12:00 | NUR ---
Patient was noted with x1 large BM, verbalized feeling better.
[2020-11-17] MEDS: IV D5W-0.45% NS +20 KCL 1,000 ML IV PRN (12:14)
[2020-11-17 16:00] VITALS: BP 148/82
--- NOTE | 2020-11-17 19:34 | NUR ---
No distress identified during the shift. Frequent visual check done. Kept call light within reach. Assisted with ADLs. All needs attended. Kept environment safe. All due meds given as ordered. Will endorse to the next shift for continuity of care.
--- NOTE | 2020-11-17 19:45 | NUR ---
PATIENT ALERT ORIENTED, NO SOB NO CHEST PAIN, TELE MONITOR AFIB, NO COMPLAIN OF PAIN, KEPT CLEAN AND DRY, CONT TO MONITOR.
[2020-11-17 20:16] VITALS: BP 124/67
[2020-11-17] MEDS: ATORVASTATIN 20 MG TABLET PO SCH (22:11)
[2020-11-18 00:02] VITALS: BP 138/75
[2020-11-18] MEDS: IV D5W-0.45% NS +20 KCL 1,000 ML IV PRN (02:16)
--- NOTE | 2020-11-18 04:19 | NUR ---
PATIENT ASLEEP BUT AROUSABLE, NO SOB NO CHEST PAIN, TELE MONITOR A FIB, NO COMPLAIN OF PAIN, TURN AND REPOSITION, KEPT COMFORTABLE.
[2020-11-18 04:24] VITALS: BP 125/71
[2020-11-18 06:57] LABS: CREATININE 0.7 mg/dL (0.6-1.3); MAGNESIUM 1.7 mg/dL (1.8-2.4); POTASSIUM 4.6 mmol/L (3.5-5.1)
--- NOTE | 2020-11-18 07:30 | NUR ---
Awake, alert, oriented x 4. IVF infusing well. RFA and Right hip dressing clean and dry. Denies numbness, tingling.
[2020-11-18] MEDS: AMIODARONE HCL 200 MG TABLET PO SCH (09:45)
[2020-11-18] MEDS: CARVEDILOL 12.5 MG TABLET PO SCH (09:45)
[2020-11-18] MEDS: ASPIRIN 81 MG TAB.CHEW PO SCH (09:45)
[2020-11-18] MEDS: PANTOPRAZOLE SODIUM 40 MG VIAL IV SCH (09:45)
[2020-11-18] MEDS: ENTRESTO PO SCH (09:47)
[2020-11-18] MEDS: APIXABAN 2.5 MG TABLET PO SCH (09:47)
[2020-11-18] MEDS: GLUCERNA SHAKE 237 ML CAN PO SCH ×2 (09:48→12:42)
[2020-11-18] MEDS: Z GUARD REMEDY PASTE 57 GM TUBE TOP SCH (09:49)
[2020-11-18] MEDS: MYRBETRIQ 25 MG PO SCH (09:53)
[2020-11-18] MEDS: MAGNESIUM SULFATE/D5W 100 ML IV SCH ×2 (09:55→12:10)
[2020-11-18] MEDS: HYDROCODONE/APAP 10-325 MG TABLET PO PRN (09:59)
[2020-11-18 11:13] VITALS: BP 146/90
[2020-11-18] MEDS ORDERED: ASPI81TA31 PO (13:16)
[2020-11-18] MEDS ORDERED: APIX2.5T PO (13:16)
--- NOTE | 2020-11-18 15:43 | NUR ---
With discharge order to SNF, aranged at [facility]. Report given to Ning. Midline removed. Discharged via gurney/ambulance in fair condition, not in distress, afebrile
[2020-11-19] MEDS ORDERED: PANTOPRAZOLE SODIUM 40 MG TABLET.DR PO SCH (07:00)
== END 2020-11-18 15:45 | DRG 510 ==
LOC: TELE3 13:18 → MEDSURG3 11-18 07:46
PROVIDERS: ADMIT Internal Medicine; ATTEND Nurse Practitioner Acute Care
PROC: 0PSJ04Z Reposition Left Radius with Internal Fixation Device, Open Approach (ICD-10-PCS; principal; 2020-11-15)
DX: S52.572A Other intraarticular fracture of lower end of left radius, initial encounter for closed fracture (principal); N17.0 Acute kidney failure with tubular necrosis; N39.0 Urinary tract infection, site not specified; S52.613A Displaced fracture of unspecified ulna styloid process, initial encounter for closed fracture; E11.9 Type 2 diabetes mellitus without complications; E78.5 Hyperlipidemia, unspecified; E88.09 Other disorders of plasma-protein metabolism, not elsewhere classified; F17.210 Nicotine dependence, cigarettes, uncomplicated; G89.29 Other chronic pain; I48.0 Paroxysmal atrial fibrillation; Z95.0 Presence of cardiac pacemaker; Z91.81 History of falling; Z86.73 Personal history of transient ischemic attack (TIA), and cerebral infarction without residual deficits; D64.9 Anemia, unspecified; M19.90 Unspecified osteoarthritis, unspecified site; Z79.01 Long term (current) use of anticoagulants; I11.0 Hypertensive heart disease with heart failure; I50.9 Heart failure, unspecified; W19.XXXA Unspecified fall, initial encounter; Y93.9 Activity, unspecified; Y92.89 Other specified places as the place of occurrence of the external cause; Z20.822 Contact with and (suspected) exposure to COVID-19; Z85.828 Personal history of other malignant neoplasm of skin; Z96.642 Presence of left artificial hip joint
CPT/HCPCS: 36415; 73100; 83735; 84100; 85025; 85610; A4649; A6209; C1713; C9113; G0378; J1100; J1650; J2405; J3010; J3370; J3475; J3490; J7040; J7042; J7060